=== PATIENT | female | born 1950 | race Caucasian/White ===

== ENCOUNTER 2017-09-20 12:03 | Inpatient (IN) | payer OTHER ==
[~2017-09-20] VITALS: Ht 170.2 cm; Wt 91.0 kg
[~2017-09-20 12:03] MED LIST: ELIQUIS2.5 MG PO; LO-DOSE ASPIRIN81 M2 PO; NON-ASPIRIN PA500 M1 PO; ONE DAILY MUL400 MCG PO; OXYCODONE HCL5 MG PO
[2017-09-20 17:04] VITALS: BP 130/60
[2017-09-21 00:05] VITALS: BP 106/53
[2017-09-21 04:36] VITALS: BP 112/53
[2017-09-21 05:58] LABS: MCH 29.8 PG (29.0-34.0); MCHC 32.3 G/DL (30.0-36.0); MCV 92.3 FL (83-99); MEAN PLAT.VOLUME 8.9 uM^3 (9.5-12.4); PLATELET COUNT 203 K/uL (156-360); RBC DIS.WIDTH-CV 12.7 % (11.8-14.6); RBC DIS.WIDTH-SD 42.4 % (39-53); RED BLOOD COUNT 3.25 M/uL (3.80-5.20); WHITE BLOOD COUNT 7.3 K/uL (4.1-10.2)
[2017-09-21 06:32] LABS: ALKALINE PHOSPHATASE 51 IU/L (3-129); ANION GAP 8 MEQ/L (2-14); CHLORIDE 98 MEQ/L (99-109); GFR ESTIMATE (CALCULATED) 52 mL/min/; GLUCOSE 116 mg/dL (70-99); POTASSIUM 3.8 MEQ/L (3.7-5.4); SAMPLE HEMOLYSIS CHECK 0; SAMPLE ICTERIC CHECK 0; SAMPLE LIPEMIA CHECK 0; SODIUM 135 MEQ/L (136-147); TOTAL BILIRUBIN 0.6 MG/DL (0.0-1.0); UREA NITROGEN (BUN) 20 mg/dL (9-23)
[2017-09-21 15:49] VITALS: BP 109/52
[2017-09-22 04:58] VITALS: BP 110/55
[2017-09-22 15:49] VITALS: BP 120/55
[2017-09-23 05:01] VITALS: BP 106/54
[2017-09-23 15:41] VITALS: BP 128/60
[2017-09-24 05:37] VITALS: BP 124/58
[2017-09-24 07:23] LABS: POINT-OF-CARE METER ID UU13113720
[2017-09-24 15:13] VITALS: BP 121/58
[2017-09-25 05:57] LABS: EOSINOPHIL (%) 4.3 % (0-5); EOSINOPHIL COUNT 0.3 K/uL (0-0.3); HEMATOCRIT 27.3 % (36.0-46.0); IMMATURE GRANULOCYTE (%) 0.2 % (0.0-0.7); INSTRUMENT ABS NEUTROPHIL CT 3.8 K/uL; LYMPHOCYTE COUNT 1.3 K/uL (1.0-2.8); MCH 30.7 PG (29.0-34.0); MCHC 33.3 G/DL (30.0-36.0); MCV 92.2 FL (83-99); MEAN PLAT.VOLUME 8.5 uM^3 (9.5-12.4); MONOCYTE (%) 8.5 % (3-12); MONOCYTE COUNT 0.5 K/uL (0-0.8); NEUTROPHIL (%) 64.4 % (45-76); NEUTROPHIL COUNT 3.8 K/uL (1.8-6.4); RBC DIS.WIDTH-CV 12.5 % (11.8-14.6); RBC DIS.WIDTH-SD 41.6 % (39-53); RED BLOOD COUNT 2.96 M/uL (3.80-5.20); WHITE BLOOD COUNT 5.9 K/uL (4.1-10.2)
[2017-09-25 05:59] VITALS: BP 116/56
[2017-09-25 06:02] LABS: PLATELET COUNT 273 K/uL (156-360)
[2017-09-25 06:31] LABS: ALKALINE PHOSPHATASE 52 IU/L (3-129); ANION GAP 6 MEQ/L (2-14); CHLORIDE 102 MEQ/L (99-109); GFR ESTIMATE (CALCULATED) > 59 mL/min/; GLUCOSE 97 mg/dL (70-99); POTASSIUM 4.1 MEQ/L (3.7-5.4); SAMPLE HEMOLYSIS CHECK 0; SAMPLE ICTERIC CHECK 0; SAMPLE LIPEMIA CHECK 0; SODIUM 139 MEQ/L (136-147); TOTAL BILIRUBIN 0.6 MG/DL (0.0-1.0); UREA NITROGEN (BUN) 14 mg/dL (9-23)
[2017-09-25 15:12] VITALS: BP 122/87
[2017-09-26 05:35] VITALS: BP 120/57
[2017-09-26 15:00] VITALS: BP 115/57
[2017-09-27 05:42] VITALS: BP 111/57
[2017-09-27 15:07] VITALS: BP 137/65
[2017-09-28 05:14] VITALS: BP 175/67
[2017-09-28 05:38] VITALS: BP 136/68
[2017-09-28 06:31] LABS: EOSINOPHIL (%) 3.6 % (0-5); EOSINOPHIL COUNT 0.2 K/uL (0-0.3); HEMATOCRIT 29.2 % (36.0-46.0); IMMATURE GRANULOCYTE (%) 0.3 % (0.0-0.7); INSTRUMENT ABS NEUTROPHIL CT 3.6 K/uL; LYMPHOCYTE COUNT 1.4 K/uL (1.0-2.8); MCH 29.7 PG (29.0-34.0); MCHC 32.5 G/DL (30.0-36.0); MCV 91.3 FL (83-99); MEAN PLAT.VOLUME 8.3 uM^3 (9.5-12.4); MONOCYTE (%) 9.5 % (3-12); MONOCYTE COUNT 0.6 K/uL (0-0.8); NEUTROPHIL (%) 62.5 % (45-76); NEUTROPHIL COUNT 3.6 K/uL (1.8-6.4); RBC DIS.WIDTH-CV 12.5 % (11.8-14.6); RBC DIS.WIDTH-SD 41.5 % (39-53); WHITE BLOOD COUNT 5.8 K/uL (4.1-10.2)
[2017-09-28 06:35] LABS: PLATELET COUNT 372 K/uL (156-360)
[2017-09-28 07:27] LABS: ALKALINE PHOSPHATASE 58 IU/L (3-129); ANION GAP 8 MEQ/L (2-14); CHLORIDE 100 MEQ/L (99-109); GFR ESTIMATE (CALCULATED) > 59 mL/min/; GLUCOSE 92 mg/dL (70-99); POTASSIUM 3.9 MEQ/L (3.7-5.4); SAMPLE HEMOLYSIS CHECK 0; SAMPLE ICTERIC CHECK 0; SAMPLE LIPEMIA CHECK 0; SODIUM 138 MEQ/L (136-147); TOTAL BILIRUBIN 0.6 MG/DL (0.0-1.0); UREA NITROGEN (BUN) 12 mg/dL (9-23)
[2017-09-28 08:30] VITALS: BP 134/60
[2017-09-28 15:40] VITALS: BP 122/70
[2017-09-29 05:37] VITALS: BP 120/65
[2017-09-29 07:40] VITALS: BP 125/59
[2017-09-29] MEDS ORDERED: POLYETHYLENE GL17 GM PO (21:34)
[2017-09-29] MEDS ORDERED: SENNA PLUS TAB1 EACH PO (21:34)
[2017-09-29] MEDS ORDERED: Salonpas 4% Patch TD (21:35)
[2017-09-30 05:31] VITALS: BP 127/58
== END 2017-09-30 13:17 | DRG 560 ==
LOC: 3WEST 12:03 → ENPENDDIS 09-30 → 3WEST 09-30 13:17
PROVIDERS: Physical Medicine & Rehabilitation Pain Medicine; Psychiatry & Neurology Neurology
PROC: F07M0ZZ Range of Motion and Joint Mobility Treatment of Musculoskeletal System - Whole Body (ICD-10-PCS; principal; 2017-09-20)
DX: Z47.1 Aftercare following joint replacement surgery (principal); Z96.652 Presence of left artificial knee joint; R26.89 Other abnormalities of gait and mobility; K59.00 Constipation, unspecified; M17.12 Unilateral primary osteoarthritis, left knee; Z83.3 Family history of diabetes mellitus; M51.36 Other intervertebral disc degeneration, lumbar region; M84.48XS Pathological fracture, other site, sequela; D62 Acute posthemorrhagic anemia; G47.30 Sleep apnea, unspecified; M17.11 Unilateral primary osteoarthritis, right knee; M12.9 Arthropathy, unspecified; E04.1 Nontoxic single thyroid nodule; R11.0 Nausea; R50.9 Fever, unspecified
CPT/HCPCS: 80053; 82948; 85025; 85027; 97110 GO; 97530 GP